=== PATIENT | female | born 1950 | race Caucasian/White ===

== ENCOUNTER 2017-05-17 11:14 | Emergency (ER) | payer BC ==
[~2017-05-17] VITALS: Ht 165.1 cm; Wt 63.5 kg
[2017-05-17 12:03] LABS: BASOPHILS ABSOLUTE AUTO 0.02 K/mm3 (0.00-0.23); BASOPHILS PERCENT AUTO 0 % (0-2); EOSINOPHILS ABSOLUTE AUTO 0.12 K/mm3 (0.00-0.68); EOSINOPHILS PERCENT AUTO 2 % (0-6); Hematocrit 47.2 % (33.0-51.0); Hemoglobin 15.9 g/dL (11.5-16.0); IMMATURE GRAN ABSOLUTE AUTO 0.01 K/mm3 (0.00-0.10); IMMATURE GRAN PERCENT AUTO 0 % (0-1); LYMPHOCYTES ABSOLUTE AUTO 2.41 K/mm3 (0.84-5.20); LYMPHOCYTES PERCENT AUTO 37 % (21-46); MONOCYTES ABSOLUTE AUTO 0.33 K/mm3 (0.16-1.47); MONOCYTES PERCENT AUTO 5 % (4-13); Mean Corpuscular HGB 33.9 pg (26.0-34.0); Mean Corpuscular HGB Conc 33.7 g/dL (31.5-36.5); Mean Corpuscular Volume 101 fL (80-100); Mean Platelet Volume 10.8 fL (9.1-12.4); NEUTROPHILS ABSOLUTE AUTO 3.65 K/mm3 (1.96-9.15); NEUTROPHILS PERCENT AUTO 56 % (41-73); Platelet Count 201 K/mm3 (150-400); RDW Coefficient Variation 13.2 % (11.7-14.2); RDW Standard Deviation 48.6 fL (35.1-46.3); Red Blood Cell Count 4.69 M/mm3 (3.80-5.20); White Blood Cell Count 6.54 K/mm3 (4.00-11.30)
[2017-05-17 12:29] LABS: Alanine Aminotransfer (ALT/SGP 25 U/L (12-78); Albumin, Blood 3.9 g/dL (3.4-5.0); Albumin/Globulin Ratio 1.2 (0.8-1.8); Alk Phos 85 U/L (50-136); Anion Gap 7 mmol/L (6-16); Aspartate Aminotrans (AST/SGOT 19 U/L (12-37); Bilirubin, Total 0.5 mg/dL (0.1-1.0); Blood Urea Nitrogen 14 mg/dL (8-24); CO2, Blood 29 mmol/L (21-32); Calcium, Blood 8.9 mg/dL (8.5-10.1); Chloride, Blood 109 mmol/L (98-108); Globulin, Blood 3.3 g/dL (2.2-4.0); Glomerular Filtration Rate >60 (60-); Glucose, Blood 111 mg/dL (70-99); Sodium, Blood 145 mmol/L (136-145); Total Protein, Blood 7.2 g/dL (6.4-8.2); Troponin I <0.015 ng/mL (0.000-0.040)
[2017-05-17] MEDS ORDERED: ATEN25 PO (15:26)
[2017-05-17] MEDS ORDERED: ASPI81CH PO (15:27)
[2017-05-17] MEDS ORDERED: ATOR20 PO (15:27)
== END 2017-05-17 15:28 | disposition home or self-care (01) ==
LOC: ER 11:14
PROVIDERS: Emergency Medicine
DX: I48.0 Paroxysmal atrial fibrillation (principal); Z88.1 Allergy status to other antibiotic agents; Z88.0 Allergy status to penicillin; Z88.8 Allergy status to other drugs, medicaments and biological substances; Z79.899 Other long term (current) drug therapy; Z79.82 Long term (current) use of aspirin
CPT/HCPCS: 71046; 80053; 83880; 84484; 85025; 93005; 93010; 99283

== ENCOUNTER 2024-05-29 09:11 | Day surgery (SDC) | payer MEDICARE, BC ==
[2024-05-29] VITALS (11 sets, daily range): BP systolic 100–150; BP diastolic 66–114
[~2024-05-29] VITALS: Ht 165.1 cm; Wt 79.0 kg
[~2024-05-29 09:11] MED LIST: ASPI81CH PO; ATEN25 PO; ATOR20 PO; Aspir 8181 MG PO; METO25ER PO; RANO500T PO
[2024-05-29] MEDS ORDERED: NS 250 ML IV ONE (10:47)
[2024-05-29] MEDS ORDERED: Verapamil HCL 2.5 MG/ML 2ML Injection ONE (10:47)
[2024-05-29] MEDS ORDERED: Nitroglycerin 2 MG/20 ML BTL ONE (10:48)
[2024-05-29] MEDS ORDERED: Heparin Sodium 1000 Units/ML 10ML MDV ONE (10:48)
[2024-05-29] MEDS ORDERED: NS 1,000 ML IV ONE ×2 (10:48→11:16)
[2024-05-29] MEDS ORDERED: Metoprolol Tartrate 25 MG Tab PO ONE (11:05)
[2024-05-29] MEDS ORDERED: Aspirin 81 MG Chew PO ONE (11:05)
[2024-05-29] MEDS ORDERED: Aspirin 81 MG Chew ONE (11:15)
[2024-05-29] MEDS ORDERED: FentaNYL Citrate 50 MCG/ML 2 ML Injection ONE (11:16)
[2024-05-29] MEDS ORDERED: Midazolam HCl 1MG / ML 2ML Vial ONE (11:16)
--- NOTE | 2024-05-29 13:05 | NUR ---
PT AND S/O UPDATED ON WAIT TIME. VSS. NADN. PT AMBULATES TO AND FROM RESTROOM WITHOUT DIFF.
--- NOTE | 2024-05-29 16:37 | NUR ---
4cc OF DEPLOYED FROM R RADIAL TR BAND. NO BLEEDING NOTED. VSS. NADN. PT TOLERATING WELL. CALL LIGHT WITHIN REACH. S/O AT BEDSIDE
[2024-05-29] MEDS ORDERED: Ondansetron HCl 2 MG / ML 2ML Vial ONE (17:03)
--- NOTE | 2024-05-29 17:10 | NUR ---
PT TR BAND FULLY DEFLATED. NO BLEEDING OR HEMATOMA NOTED. VSS. PT AND S/O VERBALIZES UNDERSTANDING WRITTEN AND VERBAL INSTRUCTIONS. DENIES QUESTIONS OR CONCERNS.
--- NOTE | 2024-05-29 17:40 | NUR ---
PT TR BAND REMOVED FROM R RADIAL. CLOTH DOT APPLIED WITH SPLINT. NO BLEEDING OR HEMATOMA NOTED. VSS. NADN. PT IV DC'D. CATH INTACT. PRESSURE DSG APPLIED. NO BLEEDING NOTED. PT DC TO HOME VIA WC BY S/O
== END 2024-05-29 17:40 | disposition home or self-care (01) ==
LOC: MHTC 09:11 → ORSCMMR 09:12 → MHTC 09:25
DX: R07.89 Other chest pain (principal); R94.39 Abnormal result of other cardiovascular function study; I10 Essential (primary) hypertension; E78.5 Hyperlipidemia, unspecified; I48.19 Other persistent atrial fibrillation; H91.90 Unspecified hearing loss, unspecified ear; Z87.891 Personal history of nicotine dependence; Z79.82 Long term (current) use of aspirin; Z79.899 Other long term (current) drug therapy; Z91.030 Bee allergy status; Z88.1 Allergy status to other antibiotic agents; Z88.7 Allergy status to serum and vaccine; Z88.8 Allergy status to other drugs, medicaments and biological substances; Z90.49 Acquired absence of other specified parts of digestive tract; Z90.710 Acquired absence of both cervix and uterus
CPT/HCPCS: 76937; 93458; 99152; 99153; A9270; C1769; C1887; C1894; J1644; J2250; J2405; J3010; J7030; J7050; Q9967

== ENCOUNTER 2024-11-26 12:36 | Inpatient (IN) | payer MEDICARE, BC ==
[~2024-11-26] VITALS: Ht 165.1 cm; Wt 79.7 kg
[~2024-11-26 12:36] MED LIST changes: +METO100ER PO; -METO25ER PO
[2024-11-26] MEDS ORDERED: Diltiazem HCl 5 MG / ML 5ML Vial IV ONE (12:55)
[2024-11-26 13:25] LABS: BASOPHILS ABSOLUTE AUTO 0.05 K/mm3 (0.00-0.23); BASOPHILS PERCENT AUTO 1 % (0-2); EOSINOPHILS ABSOLUTE AUTO 0.02 K/mm3 (0.00-0.68); EOSINOPHILS PERCENT AUTO 0 % (0-6); Hematocrit 44.4 % (33.0-51.0); Hemoglobin 14.6 g/dL (11.5-16.0); IMMATURE GRAN ABSOLUTE AUTO 0.03 K/mm3 (0.00-0.10); IMMATURE GRAN PERCENT AUTO 0 % (0-1); LYMPHOCYTES ABSOLUTE AUTO 1.39 K/mm3 (0.84-5.20); LYMPHOCYTES PERCENT AUTO 19 % (21-46); MONOCYTES ABSOLUTE AUTO 0.73 K/mm3 (0.16-1.47); MONOCYTES PERCENT AUTO 10 % (4-13); Mean Corpuscular HGB Conc 32.9 g/dL (31.5-36.5); Mean Corpuscular Volume 103 fL (80-100); NEUTROPHILS ABSOLUTE AUTO 5.28 K/mm3 (1.96-9.15); NEUTROPHILS PERCENT AUTO 70 % (41-73); NRBC ABSOLUTE 0.00 K/mm3 (0.00-0.02); NRBC Auto 0.0 /100 WBC (0.0-0.2); Platelet Count 213 K/mm3 (150-400); RDW Coefficient Variation 16.1 % (11.7-14.2); RDW Standard Deviation 59.7 fL (35.1-46.3)
[2024-11-26 14:20] LABS: Alanine Aminotransfer (ALT/SGP 63.0 U/L (12-78); Albumin, Blood 3.5 g/dL (3.4-5.0); Albumin/Globulin Ratio 1.2 (0.8-1.8); Anion Gap 7.0 mmol/L (3-11); Aspartate Aminotrans (AST/SGOT 35.0 U/L (12-37); Bilirubin, Total 1.7 mg/dL (0.1-1.0); Blood Urea Nitrogen 10.0 mg/dL (8-24); CO2, Blood 25.0 mmol/L (21-32); Calcium, Blood 9.3 mg/dL (8.5-10.1); Chloride, Blood 109.0 mmol/L (98-108); Creatinine, Blood 1.05 mg/dL (0.40-1.00); Globulin, Blood 2.9 g/dL (2.2-4.0); Glucose, Blood 108.0 mg/dL (70-99); Potassium, Blood 3.8 mmol/L (3.5-5.5); Sodium, Blood 137.0 mmol/L (136-145); Total Protein, Blood 6.4 g/dL (6.4-8.2)
[2024-11-26] MEDS ORDERED: Furosemide 10 MG / ML 2ML Vial IV SCH (16:00)
[2024-11-26] MEDS ORDERED: Lidocaine HCl 2% 20 MG/ML 5ML SYR IV ONE (16:10)
[2024-11-26] MEDS ORDERED: Propofol 10mg/ml 20 ml Vial (Procedural) IV ONE (16:10)
[2024-11-26 16:30] VITALS: BP 122/87
[2024-11-26 17:36] VITALS: BP 123/83
--- NOTE | 2024-11-26 17:59 | NUR ---
PT ARRIVED TO UNIT @ 1623 FROM THE ED VIA GURNEY. VS, WEIGHT, AND SKIN CHECK COMPLETED. PT HAS CARDIZEM GTT RUNNING @ 15ML/HR. SHE IS A&Ox4 AND ABLE TO MAKE NEEDS KNOWN. SHE IS ON RA W/O2 SATS >90%. PUREWICK IN PLACE D/T DIURESING AND BEDREST D/T ELEVATED HR. PARTNER @ BEDSIDE. PT STATES THAT SHE HASN'T HAD A GOOD BM IN A WEEK. AND THAT THE ONE SHE HAD THIS MORNING WAS JUST MUCOUS. NO OTHER NEEDS OR CONCERNS NOTED @ THIS TIME. BED IN LOW POSITION, CALL LIGHT AND PERSONAL BELONGINGS IN REACH.
[2024-11-26 18:00] VITALS: BP 107/77
[2024-11-26 18:37] VITALS: BP 92/80
[2024-11-26 23:00] VITALS: BP 102/73
[2024-11-27] VITALS (19 sets, daily range): BP systolic 94–123; BP diastolic 39–96
--- NOTE | 2024-11-27 01:14 | NUR ---
PHYSICIAN COMMUNICATION CONTACTED [employer] SYSTEM[employer] INTEGRATOR RESIDENT, DR LOTT, TO NOTIFY HIM THAT THE PATIENT WAS COMPLAINING OF A HEADACHE. HE ORDERED TYLENOL [phone] [phone] PRN.
[2024-11-27 04:34] LABS: Anion Gap 8.0 mmol/L (3-11); Blood Urea Nitrogen 13.0 mg/dL (8-24); CO2, Blood 25.0 mmol/L (21-32); Calcium, Blood 8.5 mg/dL (8.5-10.1); Chloride, Blood 110.0 mmol/L (98-108); Creatinine, Blood 1.09 mg/dL (0.40-1.00); Glucose, Blood 105.0 mg/dL (70-99); Potassium, Blood 3.4 mmol/L (3.5-5.5); Sodium, Blood 140.0 mmol/L (136-145)
--- NOTE | 2024-11-27 06:24 | NUR ---
SHIFT SUMMARY PATIENT ALERT AND ORIENTED X4. MEDICATED PER EMAR FOR HEADACHE. ON ROOM AIR WITH SPO2 >90%. BLOOD PRESSURE STABLE, CONTINUES IN AFIB ON TELE. CURRENTLY ON CARDIZEM DRIP AT 10. PATIENT'S HEART RATE JUMPS FROM 80'S-90'S AT REST TO 140'S WITH MINIMAL EXERTION. WILL CONTINUE TO MONITOR. CALL LIGHT WITHIN REACH.
[2024-11-27] MEDS ORDERED: Amiodarone HCl 150 MG in NS 100 ML IV ONE (10:25)
[2024-11-27] MEDS ORDERED: Amiodarone HCl 450 MG in NS 250 ML IV SCH (10:25)
--- NOTE | 2024-11-27 14:29 | NUR ---
DECREASING BLOOD PRESSURE: PATIENT WITH SOME DECREASING, BLOOD PRESSURE, SNAKER DRIVING HORSES CALLED, IN REGAURDS TO A BP OF 98/39 MAP OF 57. YADIEL OF 88/69, HOWEVER, AT 1130 WAS 114/85(88) SPOKE WITH DR. CARDENAS, 250mL BOLUS, SPOKE WITH PRIMARY RN FOR PLAN OF CARE.
[2024-11-27] MEDS ORDERED: NS 250 ML IV ONE (14:30)
--- NOTE | 2024-11-27 17:01 | NUR ---
PT IS A&Ox4 AND ABLE TO MAKE NEEDS KNOWN. SHE IS ON RA W/O2 SATS > 90%. SHE IS ON AN AMIODARONE GTT PER EMAR. GERONIMOCK IN PLACE D/T BEING ON BEDREST FOR ELEVATED HR. PARTNER @ BEDSIDE. PT C/O DIZZINESS, CHEST PRESSURE, AND SOB. NOTIFIED DR. CARDENAS ABOUT THIS AND HE SAID TO CONTINUE TO MONITOR HER AND IF HER BP DROPS TO SEND HER TO ICU. NO OTHER NEEDS OR CONCERNS NOTED @ THIS TIME. BED IN LOW POSITION, CALL LIGHT AND PERSONAL BELONGINGS IN REACH.
[2024-11-28] VITALS (20 sets, daily range): BP systolic 98–150; BP diastolic 81–102
--- NOTE | 2024-11-28 06:26 | NUR ---
SHIFT SUMMARY PATIENT ALERT AND ORIENTED X4. HAD NO COMPLAINTS OF PAIN OVERNIGHT. PATIENT UNABLE TO HAVE A BOWEL MOVEMENT AND REPORTS SOME SHORTNESS OF BREATH AND UPPER ABDOMINAL PRESSURE THAT SHE IS ATTRIBUTING TO IT. PATIENT CONTINUES ON AMIODARONE DRIP, AFIB ON TELE WITH HEART RATE AVERAGING IN THE 120'S-130'S OVERNIGHT. ON ROOM AIR WITH SPO2 >90%. WILL CONTINUE TO MONITOR. CALL LIGHT WITHIN REACH.
[2024-11-28] MEDS ORDERED: Enoxaparin 80 MG/0.8 ML SYR SC SCH (09:00)
[2024-11-28 09:12] LABS: BASOPHILS ABSOLUTE AUTO 0.05 K/mm3 (0.00-0.23); BASOPHILS PERCENT AUTO 1 % (0-2); EOSINOPHILS ABSOLUTE AUTO 0.03 K/mm3 (0.00-0.68); EOSINOPHILS PERCENT AUTO 0 % (0-6); Hematocrit 47.7 % (33.0-51.0); Hemoglobin 16.2 g/dL (11.5-16.0); IMMATURE GRAN ABSOLUTE AUTO 0.02 K/mm3 (0.00-0.10); IMMATURE GRAN PERCENT AUTO 0 % (0-1); LYMPHOCYTES ABSOLUTE AUTO 1.07 K/mm3 (0.84-5.20); LYMPHOCYTES PERCENT AUTO 12 % (21-46); MONOCYTES ABSOLUTE AUTO 0.69 K/mm3 (0.16-1.47); MONOCYTES PERCENT AUTO 8 % (4-13); Mean Corpuscular HGB Conc 34.0 g/dL (31.5-36.5); Mean Corpuscular Volume 101 fL (80-100); NEUTROPHILS ABSOLUTE AUTO 6.96 K/mm3 (1.96-9.15); NEUTROPHILS PERCENT AUTO 79 % (41-73); NRBC ABSOLUTE 0.00 K/mm3 (0.00-0.02); NRBC Auto 0.0 /100 WBC (0.0-0.2); Platelet Count 195 K/mm3 (150-400); RDW Coefficient Variation 16.1 % (11.7-14.2); RDW Standard Deviation 59.1 fL (35.1-46.3)
[2024-11-28 09:29] LABS: Alanine Aminotransfer (ALT/SGP 51.0 U/L (12-78); Albumin, Blood 3.6 g/dL (3.4-5.0); Albumin/Globulin Ratio 1.1 (0.8-1.8); Anion Gap 11.0 mmol/L (3-11); Aspartate Aminotrans (AST/SGOT 22.0 U/L (12-37); Bilirubin, Total 1.9 mg/dL (0.1-1.0); Blood Urea Nitrogen 11.0 mg/dL (8-24); CO2, Blood 22.0 mmol/L (21-32); Calcium, Blood 9.1 mg/dL (8.5-10.1); Chloride, Blood 107.0 mmol/L (98-108); Creatinine, Blood 0.8 mg/dL (0.40-1.00); Globulin, Blood 3.4 g/dL (2.2-4.0); Glucose, Blood 119.0 mg/dL (70-99); Magnesium, Blood 1.9 mg/dL (1.6-2.4); Potassium, Blood 4.0 mmol/L (3.5-5.5); Sodium, Blood 136.0 mmol/L (136-145); Total Protein, Blood 7.0 g/dL (6.4-8.2)
[2024-11-28] MEDS ORDERED: Polyethylene Glycol 3350 17 gm PO PRN (10:40)
[2024-11-28] MEDS ORDERED: Glycerin Adult Supp 1 EA PR PRN (10:40)
[2024-11-28] MEDS ORDERED: Magnesium Hydroxide Conc 10 ML UDC PO PRN (10:40)
[2024-11-28] MEDS ORDERED: Ondansetron 4 MG SoluTab MM ONE (11:00)
[2024-11-28] MEDS ORDERED: NS 1,000 ML IV ONE (11:47)
[2024-11-28] MEDS ORDERED: Benzocaine Oral Spray 0.5ML UD ONE (12:00)
--- NOTE | 2024-11-28 12:30 | NUR ---
POST KAITLYN: PT ARRIVES BACK TO ROOM POST KAITLYN. PT ON 4L NC AND IS DIFFICULT TO ARROUSE. PT OPENS EYES TO LIGHT STERNAL RUB BUT DOES NOT SAY ANYTHING AND FALLS BACK ASLEEP.VITAL SIGNS STABLE.
--- NOTE | 2024-11-28 12:54 | NUR ---
UPDATE: PT MORE ARROUSABLE AT THIS TIME. ABLE TO TELL ME WHERE SHE IS AT AND WHO HER VISITOR IS. VSS.
--- NOTE | 2024-11-28 13:30 | NUR ---
UPDATE: PT AWAKE AND ALERT AT THIS TIME. PT REPORTING THAT SHE STILL FEELS DROUSY BUT APPEARS TO BE AT BASE LINE. HR STILL TACHY OTHERWISE VSS. MAINTAINING OWN AIRWAY.
--- NOTE | 2024-11-28 15:15 | NUR ---
KAITLYN PROCEDURE TIME OUT AT 1202. SEDATION FROM ANESTHESIOLOGIST STARTED AT 1203. PROCEDURE START TIME 1205. PROCEDURE END TIME 1211.
--- NOTE | 2024-11-28 18:02 | NUR ---
SHIFT SUMMARY: PT A&OX4. FOLLOWS COMMANDS AND MAKES NEEDS KNOWN TO STAFF. PT USED A PUREWICK TODAY DUE TO INCREASED HR WITH EXERTION, HOWEVER PT DID GET UP TO THE COMMODE TO HAVE A BOWEL MOVEMENT. PTS HR DID INCREASE SLIGHTLY AND SHE DID COMPLAIN OF WEAKNESS BUT WAS ABLE TO HAVE A BOWEL MOVEMENT AND GET BACK TO BED. PT WENT FOR A KAITLYN THIS MORNING. TEST WAS POSITIVE FOR A CLOT. PT FINISHED AMIODERONE INFUSION AND WAS DIG LOADED WITH A PLAN TO START ELEQUIS THIS EVENING. PT REMAINED FREE OF ANY CP, PRESSURE, TIGHTNESS OR SOB. NO OTHER RESPIRATORY, CARDIAC OR NEURO CHANGED HAPPENED DURING THIS SHIFT. WILL CONTINUE TO CARE FOR PT TILL END OF SHIFT.
--- NOTE | 2024-11-28 20:02 | NUR ---
ASSUMPTION OF CARE ASSUMED PT'S CARE AT 1900,BEDSIDE REPORT COMPLETED.PT SLEEPING,BREATHING EVEN AND NONLABORED.NO S/S PAIN/DISCOMFORT NOTED.SIGNIFICANT OTHER AT BEDSIDE.PLAN OF CARE REVIEWED.CALL LIGHT AND PT'S ITEMS WITHIN REACH.MONITORING ONGOING PER CAREPLAN.
[2024-11-29 04:13] VITALS: BP 130/83
--- NOTE | 2024-11-29 06:32 | NUR ---
PATIENT MONITORED DURING THE SHIFT.PT SLEPT MOST OF THE SHIFT,EASILY AROUSABLE TO VOICE.HEART RHYTHM REMAINS IN AFIB WITH IRREGULAR RATE 89-112.NO C/O CHEST PAIN/DISCOMOFORT.PT WIDE AWAKE AT THIS TIME.PT DENIES NEEDS.CALL LIGHT AND PT'S ITEMS WITHIN REACH.SIGNIFICANT OTHER AT BEDSIDE.MONITORING ONGOING PER CAREPLAN.
[2024-11-29 07:53] VITALS: BP 139/101
[2024-11-29 09:56] LABS: BASOPHILS ABSOLUTE AUTO 0.05 K/mm3 (0.00-0.23); BASOPHILS PERCENT AUTO 1 % (0-2); EOSINOPHILS ABSOLUTE AUTO 0.07 K/mm3 (0.00-0.68); EOSINOPHILS PERCENT AUTO 1 % (0-6); Hematocrit 49.7 % (33.0-51.0); Hemoglobin 16.6 g/dL (11.5-16.0); IMMATURE GRAN ABSOLUTE AUTO 0.04 K/mm3 (0.00-0.10); IMMATURE GRAN PERCENT AUTO 1 % (0-1); LYMPHOCYTES ABSOLUTE AUTO 0.74 K/mm3 (0.84-5.20); LYMPHOCYTES PERCENT AUTO 9 % (21-46); MONOCYTES ABSOLUTE AUTO 0.74 K/mm3 (0.16-1.47); MONOCYTES PERCENT AUTO 9 % (4-13); Mean Corpuscular HGB Conc 33.4 g/dL (31.5-36.5); Mean Corpuscular Volume 101 fL (80-100); NEUTROPHILS ABSOLUTE AUTO 6.24 K/mm3 (1.96-9.15); NEUTROPHILS PERCENT AUTO 79 % (41-73); NRBC ABSOLUTE 0.00 K/mm3 (0.00-0.02); NRBC Auto 0.0 /100 WBC (0.0-0.2); Platelet Count 194 K/mm3 (150-400); RDW Coefficient Variation 15.6 % (11.7-14.2); RDW Standard Deviation 57.7 fL (35.1-46.3)
[2024-11-29 10:17] LABS: Alanine Aminotransfer (ALT/SGP 40.0 U/L (12-78); Albumin, Blood 3.1 g/dL (3.4-5.0); Albumin/Globulin Ratio 0.9 (0.8-1.8); Anion Gap 8.0 mmol/L (3-11); Aspartate Aminotrans (AST/SGOT 22.0 U/L (12-37); Bilirubin, Total 2.3 mg/dL (0.1-1.0); Blood Urea Nitrogen 11.0 mg/dL (8-24); CO2, Blood 27.0 mmol/L (21-32); Calcium, Blood 8.7 mg/dL (8.5-10.1); Chloride, Blood 107.0 mmol/L (98-108); Creatinine, Blood 0.82 mg/dL (0.40-1.00); Globulin, Blood 3.6 g/dL (2.2-4.0); Glucose, Blood 111.0 mg/dL (70-99); Potassium, Blood 4.0 mmol/L (3.5-5.5); Sodium, Blood 138.0 mmol/L (136-145); Total Protein, Blood 6.7 g/dL (6.4-8.2)
[2024-11-29 11:41] VITALS: BP 124/78
[2024-11-29 15:54] VITALS: BP 116/75
--- NOTE | 2024-11-29 17:46 | NUR ---
PT SUMMARY; PT HRR STILL AFIB REMAINS IT HE 110'S AT REST STILL TAHS UP TO 140'S WITH EXERTION MOSTLY WHEN USING BEDSIDE COMMODE BUT GOES BACK DOWN WHEN BACK IN BED, SBP 115-120'S, SATS ABOVE 95% ON RA, AFEBRILE. FAMILY AT THE BEDSIDE MOST OF THE SHIFT. DR CARDENAS ROUNDED PT THIS MORNING RECOMMENDING TO [facility]HTI PT OVER THE WEEKEND TO MONITOR HEART RATE GET MORE UNDER CONTROL. PT DENIES ANY CHEST PAIN OR PRESSURE, SOME SOB WITH EXERTION AND DIZZINESS BUT GOES AWAY AT REST. NO OTHER ISSUES ENCOUNTERED WILL REPORT TO ONCOMING SHIFT
[2024-11-29 23:13] VITALS: BP 127/92
[2024-11-30 04:13] VITALS: BP 131/99
--- NOTE | 2024-11-30 05:37 | NUR ---
SHIFT SUMMARY THIS RN ASSUMED CARE OF PATIENT AT 1900. PT A&O X4. ABLE TO MAKE NEEDS KNOWN. AFIB WITH HR 100'S T/O THIS SHIFT. INCREASED HR WTIH EXERTION. DENIES CHEST PAIN/PRESSURE AND SOB. BP STABLE. PUREWICK IN PLACE. PATIENTS SIGNIFICANT OTHER STAYED IN THE ROOM T/O THIS SHIFT. BED IN LOWEST POSITION AND CALL LIGHT WITHIN REACH. THIS RN WILL REPORT TO ONCOMING DAYSHIFT RN.
[2024-11-30 07:46] VITALS: BP 142/97
[2024-11-30] MEDS ORDERED: Amiodarone HCl 150 MG in NS 100 ML IV ONE (10:15)
[2024-11-30 10:45] VITALS: BP 110/78
[2024-11-30 15:42] VITALS: BP 110/87
--- NOTE | 2024-11-30 17:29 | NUR ---
PT SUMMARY; PT WAS GIVEN AMIO BOLUS 150MG IV FOR THE SHIFT THIS MORNING PER DR SAWYER FOR AFIB RVR SINCE PT STILL TACHS U TO 130'S, THEN STARTED ON PO AMIO 400MG TID FOR ONE WEEK. DIGOXIN DC'D. HRR NOW SUSTAINING AT 90-110'S. SBP 115, SATS ABOVE 95% ON RA, AFEBRILE. PT HAS NO OTHER CARDIAC CONCERNS AT THIS TIME, PT HAS BEEN RESTING IN BED MOST OF THE SHIFT, STILL GETS UP TO USE BEDSIDE COMMODE, PUREWICK IN PLACE, PT PUT OUT ABOUT 2L CLEAR URINE OUT. REFUSED STOOL SOFTENER THIS MORNING PT C/O STOMACH UPSET. NO OTHER ISSUES REPORTED PT HAS BEEN CALLING APPROPRIATELY. WILL REPORT TO ONCOMING SHIFT
[2024-11-30 20:20] VITALS: BP 119/79
[2024-12-01 00:05] VITALS: BP 120/88
[2024-12-01 03:48] VITALS: BP 126/92
--- NOTE | 2024-12-01 05:15 | NUR ---
SHIFT SUMMARY: PT IS A&OX4, [place], BUT PLEASANT AND COOPERATIVE WITH CARE. VSS ON RA. AFIB 80'S -100'S. DENIES PAIN. TOLERATING A HEART HEALTHY DIET. WICKING SYSTEM DRAINING LARGE AMOUNTS OF CLEAR, YELLOW URINE. NO BM THIS SHIFT, PULL-UP IN PLACE. X1 ASSIST TO BSC. PT IS ABLE TO REPOSITION HERSELF IN BED. BED IN LOWEST POSITION, CALL LIGHT WITHIN REACH. CALLS APPROPRIATELY AND IS ABLE TO ADVOCATE NEEDS EFFECTIVELY.
[2024-12-01 07:39] VITALS: BP 130/86
[2024-12-01 09:04] LABS: BASOPHILS ABSOLUTE AUTO 0.05 K/mm3 (0.00-0.23); BASOPHILS PERCENT AUTO 1 % (0-2); EOSINOPHILS ABSOLUTE AUTO 0.12 K/mm3 (0.00-0.68); EOSINOPHILS PERCENT AUTO 2 % (0-6); Hematocrit 47.7 % (33.0-51.0); Hemoglobin 15.8 g/dL (11.5-16.0); IMMATURE GRAN ABSOLUTE AUTO 0.03 K/mm3 (0.00-0.10); IMMATURE GRAN PERCENT AUTO 0 % (0-1); LYMPHOCYTES ABSOLUTE AUTO 1.01 K/mm3 (0.84-5.20); LYMPHOCYTES PERCENT AUTO 15 % (21-46); MONOCYTES ABSOLUTE AUTO 0.55 K/mm3 (0.16-1.47); MONOCYTES PERCENT AUTO 8 % (4-13); Mean Corpuscular HGB Conc 33.1 g/dL (31.5-36.5); Mean Corpuscular Volume 100 fL (80-100); NEUTROPHILS ABSOLUTE AUTO 5.12 K/mm3 (1.96-9.15); NEUTROPHILS PERCENT AUTO 75 % (41-73); NRBC ABSOLUTE 0.00 K/mm3 (0.00-0.02); NRBC Auto 0.0 /100 WBC (0.0-0.2); Platelet Count 205 K/mm3 (150-400); RDW Coefficient Variation 15.2 % (11.7-14.2); RDW Standard Deviation 56.5 fL (35.1-46.3)
[2024-12-01 09:23] LABS: Albumin, Blood 2.9 g/dL (3.4-5.0); Anion Gap 8 mmol/L (3-11); Blood Urea Nitrogen 11 mg/dL (8-24); CO2, Blood 27 mmol/L (21-32); Calcium, Blood 8.8 mg/dL (8.5-10.1); Chloride, Blood 107 mmol/L (98-108); Creatinine, Blood 0.77 mg/dL (0.40-1.00); Glucose, Blood 142 mg/dL (70-99); Phosphorus, Blood 3.5 mg/dL (2.5-4.9); Potassium, Blood 3.7 mmol/L (3.5-5.5); Sodium, Blood 138 mmol/L (136-145)
[2024-12-01 11:05] VITALS: BP 124/82
[2024-12-01] MEDS ORDERED: AMIODARONE HCL400 M2 PO (15:25)
[2024-12-01] MEDS ORDERED: Amiodarone HCl200 MG PO (15:26)
[2024-12-01] MEDS ORDERED: FURO20 PO (15:27)
[2024-12-01] MEDS ORDERED: ELIQUIS5 M2 PO (15:27)
[2024-12-01] MEDS ORDERED: JARDIANCE10 MG PO (15:27)
[2024-12-01] MEDS ORDERED: LOSA25 PO (15:28)
[2024-12-01] MEDS ORDERED: Aldactone25 MG PO (15:32)
[2024-12-01] MEDS ORDERED: POTA10T PO (15:32)
--- NOTE | 2024-12-01 16:33 | NUR ---
PT DISCHARGED TO [facility] TODAY WITH DISCHARGE ORDERS. PT HRR REMAINED IN THE 90-100'S PT HAS BEEN UP IN THE CHAIR AND UP TO THE BATHROOM, ALSO ABLE TO WALK AROUND THE UNIT WITHOUT ANY ISSUES. PT WAS PROVIDED WITH WALKER TO SEND HOME WITH. DISCHARGE INSTRUCTIONS DISCUSSED WITH PT AND FAMILY AT THE BEDSIDE. VERBALIZED UNDERSTANDING. MEDS SENT TO [facility] PER PT'S REQUEST. NO OTHER ISSUES REPORTED ALL BELONGINGS SENT WITH THE PT ACCOMPANIED VIA WHEELCHAIR FOR TRANSPORT
== END 2024-12-01 16:21 | disposition home or self-care (01) | DRG 291 ==
LOC: ER 12:36 → PCU 12:37
PROVIDERS: Emergency Medicine; Family Medicine; Internal Medicine Endocrinology, Diabetes & Metabolism; Student in an Organized Health Care Education/Training Program; ADMIT Internal Medicine
PROC: B24BZZ4 Ultrasonography of Heart with Aorta, Transesophageal (ICD-10-PCS; principal; 2024-11-28)
DX: I13.0 Hypertensive heart and chronic kidney disease with heart failure and stage 1 through stage 4 chronic kidney disease, or unspecified chronic kidney disease (principal); I50.21 Acute systolic (congestive) heart failure; J96.01 Acute respiratory failure with hypoxia; Q24.2 Cor triatriatum; I48.21 Permanent atrial fibrillation; I48.92 Unspecified atrial flutter; I47.10 Supraventricular tachycardia, unspecified; E78.5 Hyperlipidemia, unspecified; N18.30 Chronic kidney disease, stage 3 unspecified; E87.6 Hypokalemia; I42.8 Other cardiomyopathies; R11.0 Nausea; I25.10 Atherosclerotic heart disease of native coronary artery without angina pectoris; K59.00 Constipation, unspecified; Z88.1 Allergy status to other antibiotic agents; Z88.0 Allergy status to penicillin; Z88.7 Allergy status to serum and vaccine; Z88.8 Allergy status to other drugs, medicaments and biological substances; Z79.899 Other long term (current) drug therapy; Z79.82 Long term (current) use of aspirin; Z98.42 Cataract extraction status, left eye; Z98.41 Cataract extraction status, right eye; Z86.79 Personal history of other diseases of the circulatory system; Z91.148 Patient's other noncompliance with medication regimen for other reason; Z87.891 Personal history of nicotine dependence
CPT/HCPCS: 36415; 71045; 80048; 80053; 80069; 80162; 83735; 83880; 84443; 84484; 85025; 93005; 93010; 93306; 93312; 93325; 96365; 96366; 96367; 96375; 96376; 99285-25; A9270; G0378; J0282; J1160; J1650; J1938; J2003; J2704; J7030; J7050

== ENCOUNTER → 2025-03-10 | Outpatient (CLI) | payer MEDICARE, BC ==
[~2025-03-10] MED LIST changes: +AMIODARONE HCL400 M2 PO; +Aldactone25 MG PO; +Amiodarone HCl200 MG PO; +ELIQUIS5 M2 PO; +FURO20 PO; +JARDIANCE10 MG PO; +LOSA25 PO; +POTA10T PO
[2025-03-10 13:34] LABS: Source, Urine Clean Catch
[2025-03-10 19:16] LABS: Bilirubin, Urine Neg (Neg); Glucose Qualitative, Urine Neg (Neg); Ketones, Urine Neg (Neg); Leukocyte Esterase, Urine 1+ (Neg); Protein, Urine Neg (Neg); Specific Gravity, Urine 1.020 (1.003-1.022); Urobilinogen, Urine NORM (Normal)
[2025-03-10 19:52] LABS: Color, Urine Pale Yellow (P-Yellow)
[2025-03-10 19:54] LABS: Red Blood Cells, Urine 0-2 /hpf (0-2)
== END | disposition home or self-care (01) ==
LOC: LAB 13:33 → LAB SHORT 13:33
PROVIDERS: Nurse Practitioner Family
DX: R30.0 Dysuria (principal)
CPT/HCPCS: 81001; 87086